=== PATIENT | male | born 1940 | race Hispanic/Latino ===

== ENCOUNTER 2017-10-29 15:16 | Emergency (ER) | payer MEDICARE ==
[2017-10-29] MEDS ORDERED: PEPCID IV ONE (16:05)
[2017-10-29 16:15] LABS: Basophils % (Auto) 0.2 % (0.0-1.8); Eosinophils % (Auto) 0.4 % (0.0-4.3); Hematocrit 50.1 % (35.5-45.6); Hemoglobin 17.1 gm/dl (11.8-15.2); Lymphocytes # (Auto) 0.6 K/mm3 (1.2-5.4); Lymphocytes % (Auto) 6.4 % (13.4-35.0); Mean Corpuscular HGB Conc 34 % (32-34); Mean Corpuscular Hemoglobin 32 pg (28-32); Mean Corpuscular Volume 94 fl (84-94); Monocytes # (Auto) 0.6 K/mm3 (0.0-0.8); Monocytes % (Auto) 5.9 % (0.0-7.3); Platelet Count 157 K/mm3 (140-440); Red Blood Count 5.36 M/mm3 (3.65-5.03); Red Cell Distribution Width 13.7 % (13.2-15.2)
[2017-10-29 16:19] LABS: BUN/Creatinine Ratio 11; Blood Urea Nitrogen 18 mg/dL (9-20); Calcium 10.3 mg/dL (8.4-10.2); Hemolysis Index 9
--- NOTE | 2017-10-29 16:28 | XRay Report ---
FINAL REPORT EXAM: XR CHEST 1V AP HISTORY: SOB TECHNIQUE: Frontal chest x-ray. PRIORS: None currently available. FINDINGS: Cardiac silhouette is within normal limits. Prominent interstitial markings. Subtle ill-defined opacity at the left lung base. No pneumothorax. No obvious effusion. There are no suspicious osseous lesions. Surgical clip in the lower right cervical region. IMPRESSION: Pulmonary findings may represent pulmonary vascular congestion with developing edema. Differential diagnosis includes pneumonia and interstitial pneumonitis.
[2017-10-29] MEDS ORDERED: NACL 0.9% 1000 ML 1,000 ML IV ONE (16:50)
--- NOTE | 2017-10-29 17:25 | Emergency Department Report ---
ED Allergic Reaction HPI - General Chief complaint: Allergic Reaction Stated complaint: ALLERGIC REACTION Time Seen by Provider: 10/29/17 16:05 Source: patient, EMS Mode of arrival: Stretcher Limitations: No Limitations - History of Present Illness Initial Comments: At noon today, patient was bitten by multiple aunts. Afterwards, she developed lip and tongue swelling. He took 50 mg Benadryl, but it wasn't helping. The patient went to his family doctor at 1 pm who gave him an epi shot and Decadron. The patient was sent to the ER for evaluation. On presentation to the ER, patient feels much improved. 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 He does not have an EpiPen at home. - Related Data Home Medications Medication Instructions Recorded Confirmed Last Taken Atorvastatin [Lipitor] 40 mg PO DAILY 10/16/13 10/16/13 10/15/13 Clopidogrel Bisulfate [Clopidogrel] 75 mg PO DAILY 10/16/13 10/16/13 10/14/13 Fluticasone/Salmeterol [Advair 1 dose PO DAILY 10/16/13 10/16/13 10/15/13 Diskus 100-50 mcg] Pantoprazole [Protonix TAB] 40 mg PO DAILY 10/16/13 10/16/13 10/15/13 Tamsulosin HCl 0.4 mg pe PO DAILY 10/16/13 10/16/13 10/15/13 Tiotropium [Spiriva] 1 dose PO DAILY 10/16/13 10/16/13 10/15/13 Previous Rx's Medication Instructions Recorded Last Taken Type EPINEPHrine [Epipen 2-Paco] 0.3 mg IJ ONCE PRN #2 [email or web address] 10/29/17 Unknown Rx Allergies Allergy/AdvReac Type Severity Reaction Status Date / Time tetanus toxoid, adsorbed Allergy Anaphylaxis Verified 10/16/13 10:04 ED Review of Systems ROS: Stated complaint: ALLERGIC REACTION Other details as noted in HPI Comment: All other systems reviewed and negative ENT: other (tongue swelling, lip swelling) Skin: pruritus ED Past Medical Hx - Past Medical History Previous Medical History?: Yes Hx Heart Attack/AMI: Yes (stents x 2) Hx GERD: Yes Hx Arthritis: Yes Hx COPD: Yes - Surgical History Past Surgical History?: Yes Hx Coronary Stent: Yes (x2 rca, lad) - Social History Smoking Status: Current Every Day Smoker Substance Use Type: None - Medications Home Medications: Home Medications Medication Instructions Recorded Confirmed Last Taken Type Atorvastatin [Lipitor] 40 mg PO DAILY 10/16/13 10/16/13 10/15/13 History Clopidogrel Bisulfate [Clopidogrel] 75 mg PO DAILY 10/16/13 10/16/13 10/14/13 History Fluticasone/Salmeterol [Advair 1 dose PO DAILY 10/16/13 10/16/13 10/15/13 History Diskus 100-50 mcg] Pantoprazole [Protonix TAB] 40 mg PO DAILY 10/16/13 10/16/13 10/15/13 History Tamsulosin HCl 0.4 mg pe PO DAILY 10/16/13 10/16/13 10/15/13 History Tiotropium [Spiriva] 1 dose PO DAILY 10/16/13 10/16/13 10/15/13 History EPINEPHrine [Epipen 2-Paco] 0.3 mg IJ ONCE PRN #2 [email or web address] 10/29/17 Unknown Rx ED Physical Exam - General Limitations: No Limitations General appearance: alert, in no apparent distress - Head Head exam: Present: atraumatic, normocephalic - Eye Eye exam: Present: normal appearance - ENT ENT exam: Present: normal orophraynx, mucous membranes moist - Neck Neck exam: Present: normal inspection - Respiratory Respiratory exam: Present: normal lung sounds bilaterally. Absent: respiratory distress - Cardiovascular Cardiovascular Exam: Present: regular rate, normal rhythm. Absent: systolic murmur, diastolic murmur, rubs, gallop - GI/Abdominal GI/Abdominal exam: Present: soft, normal bowel sounds. Absent: tenderness - Rectal Rectal exam: Present: deferred - Extremities Exam Extremities exam: Present: normal inspection - Back Exam Back exam: Present: normal inspection - Neurological Exam Neurological exam: Present: alert, oriented X3 - Psychiatric Psychiatric exam: Present: normal affect, normal mood - Skin Skin exam: Present: warm, dry, intact, normal color. Absent: rash ED Course Vital Signs 10/29/17 15:25 Temperature 97.9 F Pulse Rate 99 H Respiratory 20 Rate Blood Pressure 96/44 O2 Sat by Pulse 93 Oximetry ED Medical Decision Making - Lab Data Result diagrams: 10/29/17 15:52 10/29/17 15:52 - Medical Decision Making 77-year-old male with past medical history of anaphylaxis to bee stings presents to the ER in [place] for anaphylaxis. Vital signs significant for mild hypotension with a systolic blood pressure of 100. At time of presentation to the ER, patient feels much improved. His tongue and lip swelling have resolved, as well as his itching. The patient was monitored in the ER for 4 hours after receiving IM epi. He still feels asymptomatic. Lab work shows concerns for dehydration. Patient admits he does not drink enough water. I gave him IV fluids in the ER. He has been given a prescription for an EpiPen to go home with. Patient is cleared for discharge. - Differential Diagnosis urticaria, contact dermatitis, anaphylaxis, angioedema Critical care attestation.: If time is entered above; I have spent that time in minutes in the direct care of this critically ill patient, excluding procedure time. ED Disposition Clinical Impression: Allergic angioedema Disposition: DC-01 TO HOME OR SELFCARE Is pt being admited?: No Does the pt Need Aspirin: No Condition: Stable Instructions: Insect Bite or Sting (ED), Anaphylaxis (ED) Additional Instructions: Please get her EpiPen filled immediately to have it on U just in case you have another anaphylactic reaction. If anything like this happens again, feel free to call EMS or return to the ER immediately for treatment. Prescriptions: EPINEPHrine [Epipen 2-Paco] 0.3 mg IJ ONCE PRN #2 auto.injct PRN Reason: Anaphylaxis Referrals: PRIMARY CARE, [Primary Care Provider] - 3-5 Days
[2017-10-29 17:58] VITALS: BP 120/58
== END 2017-10-29 17:59 | disposition home or self-care (01) ==
LOC: ED 15:16
DX: T78.3XXA Angioneurotic edema, initial encounter (principal); K52.9 Noninfective gastroenteritis and colitis, unspecified; M19.90 Unspecified osteoarthritis, unspecified site; F17.200 Nicotine dependence, unspecified, uncomplicated; Z95.1 Presence of aortocoronary bypass graft; Z88.7 Allergy status to serum and vaccine
CPT/HCPCS: 36415; 71045; 80048; 84484; 85025; 93005; 93010; 96361; 96374; 99285; J7030

== ENCOUNTER 2017-11-28 09:45 | Outpatient (CLI) | payer MEDICARE ==
--- NOTE | 2017-11-29 16:23 | Magnetic Resonance Report ---
FINAL REPORT EXAM: MR CERVICAL SPINE WO CON HISTORY: ANTERIOR SPINAL ARTERY COMPRESSION SYNDROMES TECHNIQUE: MRI of the cervical spine without IV contrast. PRIORS: None currently available. FINDINGS: Multiple requests were made for medical pathologist lines which were not provided. There is no tonsillar ectopy. Cervical cord is of normal caliber and signal characteristic. Marrow signal characteristics are appropriate for age. Chronic endplate degenerative changes. There is no subluxation. T3 25-50 percent anterior wedge-shaped compression fracture deformity appears chronic. The atlanto-axial articulation appears intact. C1-C2: [id number] arthrosis. No significant canal narrowing. C2-C3: Symmetrical bulge indents the thecal sac. No significant canal or foraminal narrowing. C3-C4: Symmetrical bulge. Bilateral uncovertebral facet arthropathy. Moderate to severe left foraminal narrowing. Mild right foraminal narrowing. Mild spinal canal narrowing. C4-C5: Left asymmetrical disc osteophyte complex. Bilateral uncovertebral facet arthropathy. Severe left foraminal narrowing. Moderate to severe right foraminal narrowing. Moderate spinal canal narrowing. Indentation of the ventral cord. No abnormal signal characteristics. C5-C6: Right asymmetrical disc osteophyte complex. Superimposed right lateral protrusion measures 3.7 mm. Bilateral uncovertebral facet arthropathy. Severe bilateral foraminal narrowing. Moderate to severe right spinal canal narrowing. Slight indentation of the right ventral cord. No abnormal signal characteristics. C6-C7: Symmetrical disc osteophyte complex. Bilateral uncovertebral arthropathy. Moderate to severe bilateral foraminal narrowing. Mild spinal canal narrowing. C7-T1: Bilateral facet arthropathy. Symmetrical disc osteophyte complex. Mild bilateral foraminal narrowing. No significant canal narrowing. Prevertebral soft tissue structures are unremarkable. IMPRESSION: Evaluation limited by the lack of medical pathologist lines. Multilevel degenerative discs. Most notable levels are at C3-C7.
== END 2017-11-28 09:46 | disposition home or self-care (01) ==
LOC: MRI 09:45
PROVIDERS: ATTEND Neurological Surgery
DX: M47.892 Other spondylosis, cervical region (principal); M46.83 Other specified inflammatory spondylopathies, cervicothoracic region; I25.10 Atherosclerotic heart disease of native coronary artery without angina pectoris; E78.00 Pure hypercholesterolemia, unspecified; J44.9 Chronic obstructive pulmonary disease, unspecified; K21.9 Gastro-esophageal reflux disease without esophagitis; M19.90 Unspecified osteoarthritis, unspecified site; F17.210 Nicotine dependence, cigarettes, uncomplicated; Z88.7 Allergy status to serum and vaccine
CPT/HCPCS: 72141